=== PATIENT | male | born 2000 | race Caucasian/White ===

== ENCOUNTER 2021-06-26 00:29 | Inpatient (IN) ==
[2021-06-26 01:06] LABS: RBC,Urine 76666 /HPF (0-4)
[2021-06-26 01:10] LABS: Bilirubin,Urine Negative (Negative); Blood, Urine Large mg/dL (Negative); Glucose,Urine (UA) 100 mg/dL (Negative); Ketones,Urine Negative (Negative); Nitrite,Urine Negative (Negative); Protein,Urine >=300 mg/dL (Negative); Urine Appearance Turbid (Clear); Urine Color Red (Yellow); Urine Specific Gravity >= 1.030 (1.001-1.035); Urine Urobilinogen 0.2 eU/dL (<2.0)
[2021-06-26] MEDS ORDERED: SODIUM CHLORIDE 0.9% 1,000 ML IV STA (01:51)
[2021-06-26 03:38] LABS: Basophils % 0.2 % (0.0-0.8); Eosinophils # 0.1 10*3/uL (0.0-0.87); Eosinophils % 1.3 % (0.00-10.9); Hematocrit 28.4 VOL% (42.0-52.0); Hemoglobin 9.5 GM/DL (14.0-18.0); Immature Granulocytes % 0.2 %; Immature Granulocytes Absolute 0.01 #; Lymphocytes # 1.7 10*3/uL (1.4-4.0); Lymphocytes % 37.3 % (21.2-54.2); Mean Corpuscular HGB Conc 33.5 GM/DL (32-36); Mean Corpuscular Volume 95.3 FL (87-102); Mean Platelet Volume 9.4 FL (9.6-12.0); Monocytes # 0.4 10*3/uL (0.11-0.8); Monocytes % 8.8 % (1.7-12.7); Neutrophils % 52.2 % (38.7-73.9); Platelet Count 194 T/CUMM (130-400); Red Blood Count 2.98 MC/CUMM (3.8-5.5); Red Cell Distribution Width 14.7 % (9.3-17.3); White Blood Count 4.5 T/CUMM (4-12)
[2021-06-26 03:47] LABS: INR 1.1; PT Patient Result 12.4 SECS (10.5-12.0)
[2021-06-26 03:56] LABS: Alanine Aminotransferase 32 U/L (16-61); Albumin 3.5 G/DL (3.4-5.0); Alkaline Phosphatase 30 U/L (45-117); Aspartate Amino Transferase 22 U/L (0-37); Bilirubin,Total < 0.39 MG/DL (0.20-1.00); Blood Urea Nitrogen 6 MG/DL (7-18); Calcium 8.8 MG/DL (8.5-10.1); Carbon Dioxide 30 MMOL/L (21-32); Chloride 105 MMOL/L (98-107); Estimated Glom Filtration Rate 183 ML/MIN; Glucose 109 MG/DL (74-106); Osmolality,Calculated 275.5 MOS/KG (273-304); Potassium 3.5 MMOL/L (3.5-5.1); Sodium 139 MMOL/L (136-145); Total Protein 6.2 G/DL (6.4-8.2)
[2021-06-26] MEDS ORDERED: GLUCAGON 1 MG VIAL IM PRN (04:28)
[2021-06-26] MEDS ORDERED: ACETAMINOPHEN 325 MG TABLET PO PRN (04:28)
[2021-06-26] MEDS ORDERED: ONDANSETRON 4 MG/2 ML VIAL IV PRN (04:28)
[2021-06-26] MEDS ORDERED: DEXTROSE 10% 250 ML BAG IV PRN (04:40)
[2021-06-26] MEDS: LACTATED RINGERS 1,000 ML IV SCH ×2 (05:52→16:46)
[2021-06-26] MEDS ORDERED: LACTATED RINGERS 1,000 ML IV ONE (08:41)
[2021-06-26] MEDS ORDERED: PANTOPRAZOLE 40 MG TABLET PO SCH (09:00)
[2021-06-26] MEDS: DOCUSATE SODIUM 100 MG CAPSULE PO SCH ×2 (09:20→21:26)
[2021-06-26 10:48] LABS: Hematocrit 30.6 VOL% (42.0-52.0); Hemoglobin 9.7 GM/DL (14.0-18.0)
[2021-06-26] MEDS: BACLOFEN 10 MG TABLET PO SCH ×3 (13:45→21:27)
[2021-06-26] MEDS: GABAPENTIN 300 MG CAPSULE PO SCH ×3 (13:45→21:27)
[2021-06-26] MEDS ORDERED: MIDODRINE 5 MG TABLET ONE (14:43)
[2021-06-26] MEDS: DIAZEPAM 2 MG TABLET PO SCH ×2 (16:20→21:27)
[2021-06-26] MEDS: FERROUS SULFATE 325 MG TABLET PO SCH ×2 (16:20→21:26)
[2021-06-26] MEDS: MIDODRINE 5 MG TABLET PO SCH (16:20)
[2021-06-27 04:55] LABS: Hematocrit 29.1 VOL% (42.0-52.0); Hemoglobin 9.4 GM/DL (14.0-18.0)
[2021-06-27 08:16] LABS: Basophils % 0.2 % (0.0-0.8); Eosinophils # 0.1 10*3/uL (0.0-0.87); Eosinophils % 1.2 % (0.00-10.9); Hemoglobin 9.6 GM/DL (14.0-18.0); Lymphocytes # 1.6 10*3/uL (1.4-4.0); Lymphocytes % 39.8 % (21.2-54.2); Mean Corpuscular Volume 97.1 FL (87-102); Mean Platelet Volume 9.3 FL (9.6-12.0); Monocytes # 0.3 10*3/uL (0.11-0.8); Monocytes % 7.9 % (1.7-12.7); Neutrophils % 50.9 % (38.7-73.9); Platelet Count 167 T/CUMM (130-400); Red Blood Count 3.09 MC/CUMM (3.8-5.5); Red Cell Distribution Width 14.9 % (9.3-17.3); White Blood Count 4.1 T/CUMM (4-12)
[2021-06-27 08:36] LABS: Calcium 8.7 MG/DL (8.5-10.1); Osmolality,Calculated 279.1 MOS/KG (273-304); Potassium 3.8 MMOL/L (3.5-5.1)
[2021-06-27] MEDS: DOCUSATE SODIUM 100 MG CAPSULE PO SCH ×2 (09:24→20:26)
[2021-06-27] MEDS: FERROUS SULFATE 325 MG TABLET PO SCH ×3 (09:24→20:26)
[2021-06-27] MEDS: BACLOFEN 10 MG TABLET PO SCH ×4 (09:24→20:26)
[2021-06-27] MEDS: GABAPENTIN 300 MG CAPSULE PO SCH ×4 (09:24→20:27)
[2021-06-27] MEDS: DIAZEPAM 2 MG TABLET PO SCH ×3 (09:24→20:30)
[2021-06-27] MEDS: MIDODRINE 5 MG TABLET PO SCH ×3 (09:24→17:42)
[2021-06-27] MEDS: LACTATED RINGERS 1,000 ML IV SCH (10:18)
[2021-06-28 05:40] LABS: Basophils % 0.6 % (0.0-0.8); Eosinophils # 0.1 10*3/uL (0.0-0.87); Hematocrit 31.7 VOL% (42.0-52.0); Hemoglobin 10.3 GM/DL (14.0-18.0); Immature Granulocytes % 0.2 %; Immature Granulocytes Absolute 0.01 #; Lymphocytes # 1.7 10*3/uL (1.4-4.0); Lymphocytes % 33.7 % (21.2-54.2); Mean Corpuscular HGB Conc 32.5 GM/DL (32-36); Mean Corpuscular Volume 97.2 FL (87-102); Mean Platelet Volume 9.4 FL (9.6-12.0); Monocytes # 0.4 10*3/uL (0.11-0.8); Monocytes % 8.8 % (1.7-12.7); Neutrophils % 55.7 % (38.7-73.9); Platelet Count 183 T/CUMM (130-400); Red Blood Count 3.26 MC/CUMM (3.8-5.5); Red Cell Distribution Width 14.8 % (9.3-17.3)
[2021-06-28 05:56] LABS: Osmolality,Calculated 272.7 MOS/KG (273-304); Potassium 3.5 MMOL/L (3.5-5.1)
[2021-06-28 08:15] VITALS: BP 109/60
[2021-06-28] MEDS ORDERED: BISACODYL 10 MG SUPP RECTAL ONE (08:29)
[2021-06-28] MEDS: DOCUSATE SODIUM 100 MG CAPSULE PO SCH (08:33)
[2021-06-28] MEDS: BACLOFEN 10 MG TABLET PO SCH (08:33)
[2021-06-28] MEDS: MIDODRINE 5 MG TABLET PO SCH (08:34)
[2021-06-28] MEDS: DIAZEPAM 2 MG TABLET PO SCH (08:34)
[2021-06-28] MEDS: GABAPENTIN 300 MG CAPSULE PO SCH (08:34)
[2021-06-28] MEDS: FERROUS SULFATE 325 MG TABLET PO SCH (08:44)
[2021-06-28] MEDS ORDERED: OXYBUTYNIN XL 15 MG TABLET PO SCH (09:00)
== END 2021-06-28 11:50 | disposition home or self-care (01) | DRG 695 ==
LOC: N.EDINP 00:29 → N.ED 00:29 → SUATTDRO 08:45 → N.TELEN 16:23
PROVIDERS: ADMIT Internal Medicine; ATTEND Internal Medicine